=== PATIENT | female | born 1965 | race Caucasian/White ===

== ENCOUNTER → 2016-08-06 | Outpatient (CLI) | payer OTHER ==
[~2016-08-06] MED LIST: ATIVAN1 MG PO; AUGMENTIN 875 M1 TAB PO; BACTRIM DS 8001 TA1 PO; BENTYL20 MG PO; COLACE100 MG PO; DARVOCET N 1001 TAB PO; DAYPRO600 M1 PO; DEXALONE30 MG PO; DIFLUCAN150 MG PO; FERROUS SULFAT325 M1 PO; IRON; MOTRIN800 MG PO; MULTI VITAMINS1 TAB PO; PEPCID20 MG PO; ROBAXIN750 MG PO; TESSALON PERLE200 MG PO; TRAMADOL HCL50 MG PO; ULTRAM50 MG PO; VICODIN 500 MG-1 TAB PO; VOLTAREN50 M1 PO; ZITHROMAX Z PA250 MG PO; ZITHROMAX250 MG PO
[2016-08-06 13:27] LABS: BASO % 0.5 % (0.0-1.0); EOS % 0.5 % (1.0-4.0); HEMATOCRIT 38.6 % (37.0-47.0); HEMOGLOBIN 12.6 g/dl (12.0-16.0); MEAN CELL VOLUME 84.3 fl (81.0-99.0); MEAN CORPUSCULAR HGB 27.5 pg (27.0-31.0); MEAN CORPUSCULAR HGB CONC 32.6 g/dl (33.0-37.0); MEAN PLATELET VOLUME 9.3 fl (9.6-12.3); MONO # 0.5 10*3/uL (0.1-1.0); MONO % 6.8 % (3.0-9.0); NEUT # 4.8 10*3/uL (2.3-7.9); NEUT % 64.8 % (47.0-73.0); PLATELET COUNT AUTOMATED 289 10*3/uL (130-400); RED BLOOD COUNT 4.58 10*6/uL (4.10-5.10); WHITE BLOOD COUNT 7.4 10*3/uL (4.8-10.8)
[2016-08-06 13:46] LABS: ALBUMIN 3.9 gm/dl (3.1-4.5); ALKALINE PHOSPHATASE 91 U/L (45-117); BILIRUBIN, TOTAL 0.3 mg/dl (0.2-1.0); BUN 13 mg/dl (7-24); CARBON DIOXIDE 29 mmol/L (21-32); CHLORIDE 103 mmol/L (98-107); CHOLESTEROL 198 mg/dL (<200); EST GLOM FILT AFRICAN AMERICAN > 60 ml/min; GLUCOSE 83 mg/dL (65-99); HDL CHOLESTEROL 69 mg/dl (40-60); LDL CHOLESTEROL 115 mg/dL (9-159); POTASSIUM 3.7 mmol/L (3.5-5.1); SGOT/AST 13 IU/L (3-35); SGPT/ALT 23 U/L (12-78); SODIUM 142 mmol/L (136-145); TOTAL PROTEIN 7.6 gm/dL (6.4-8.2); TRIGLYCERIDES 68 mg/dl (<150); VLDL CHOLESTEROL 14 mg/dL (6-40)
[2016-08-06 13:53] LABS: THYROID STIM HORMONE (HS) 0.664 uIU/ml (0.358-4.75)
== END | disposition home or self-care (01) ==
LOC: LAB 13:05
PROVIDERS: Family Medicine
DX: E78.5 Hyperlipidemia, unspecified (principal); R53.83 Other fatigue; R63.5 Abnormal weight gain

== ENCOUNTER → 2019-06-13 | Outpatient (CLI) | payer BC, MEDICAID ==
[2019-06-13 16:44] LABS: BUN 9 mg/dl (7-24); CREATININE 0.79 mg/dL (0.55-1.02)
== END | disposition home or self-care (01) ==
LOC: LAB 15:49
PROVIDERS: Psychiatry & Neurology Neurology
DX: R41.3 Other amnesia (principal)

== ENCOUNTER → 2019-06-18 | Outpatient (CLI) | payer BC, MEDICAID | END | disposition home or self-care (01) | LOC: MRI 00:34 | DX: R41.9 Unspecified symptoms and signs involving cognitive functions and awareness (principal); R26.9 Unspecified abnormalities of gait and mobility; R25.8 Other abnormal involuntary movements ==

== ENCOUNTER → 2019-06-20 | Outpatient (CLI) | payer BC, MEDICAID | END | disposition home or self-care (01) | LOC: LAB 16:47 | DX: R53.83 Other fatigue (principal) ==

== ENCOUNTER → 2020-09-25 | Outpatient (CLI) | payer OTHER ==
[2020-09-25 13:45] LABS: BASO % 0.3 % (0.0-1.0); EOS % 0.5 % (1.0-4.0); HEMATOCRIT 38.2 % (37.0-47.0); LYMPH # 1.6 10*3/uL (1.3-4.4); LYMPH % 27.5 % (27.0-41.0); MEAN CELL VOLUME 88.4 fl (81.0-99.0); MEAN CORPUSCULAR HGB 29.9 pg (27.0-31.0); MEAN CORPUSCULAR HGB CONC 33.8 g/dl (33.0-37.0); MEAN PLATELET VOLUME 9.8 fl (9.6-12.3); MONO # 0.4 10*3/uL (0.1-1.0); MONO % 7.3 % (3.0-9.0); NEUT # 3.7 10*3/uL (2.3-7.9); NEUT % 64.1 % (47.0-73.0); PLATELET COUNT AUTOMATED 205 10*3/uL (130-400); RED BLOOD COUNT 4.32 10*6/uL (4.10-5.10); RED CELL DISTRI WIDTH 11.7 % (0-14.5); WHITE BLOOD COUNT 5.7 10*3/uL (4.8-10.8)
[2020-09-25 14:31] LABS: ALBUMIN 3.8 gm/dl (3.1-4.5); BUN 11 mg/dl (7-24); CHLORIDE 107 mmol/L (98-107); CREATININE 0.63 mg/dL (0.55-1.02); POTASSIUM 3.7 mmol/L (3.5-5.1); SGOT/AST 14 IU/L (3-35); SGPT/ALT 22 U/L (12-78); SODIUM 140 mmol/L (136-145)
[2020-09-25 14:39] LABS: ALKALINE PHOSPHATASE 98 U/L (45-117); THYROID STIM HORMONE (HS) 0.755 uIU/ml (0.358-4.75)
[2020-09-25 15:19] LABS: VITAMIN D, 25-HYDROXY 39.7 ng/mL (30-100)
== END | disposition home or self-care (01) ==
LOC: LAB 13:04
PROVIDERS: ATTEND Physician Assistant
DX: Z51.81 Encounter for therapeutic drug level monitoring (principal); E55.9 Vitamin D deficiency, unspecified

== ENCOUNTER → 2020-12-09 | Outpatient (CLI) | payer OTHER ==
[2020-12-09 10:18] LABS: BASO % 0.6 % (0.0-1.0); EOS # 0.1 10*3/uL (0.0-0.4); EOS % 2.1 % (1.0-4.0); HEMATOCRIT 38.9 % (37.0-47.0); LYMPH # 1.5 10*3/uL (1.3-4.4); LYMPH % 31.2 % (27.0-41.0); MEAN CELL VOLUME 89.6 fl (81.0-99.0); MEAN CORPUSCULAR HGB CONC 33.4 g/dl (33.0-37.0); MEAN PLATELET VOLUME 9.7 fl (9.6-12.3); MONO # 0.4 10*3/uL (0.1-1.0); MONO % 8.6 % (3.0-9.0); NEUT # 2.7 10*3/uL (2.3-7.9); NEUT % 57.3 % (47.0-73.0); PLATELET COUNT AUTOMATED 199 10*3/uL (130-400); RED BLOOD COUNT 4.34 10*6/uL (4.10-5.10); RED CELL DISTRI WIDTH 11.5 % (0-14.5); WHITE BLOOD COUNT 4.8 10*3/uL (4.8-10.8)
[2020-12-09 10:44] LABS: IRON 82 ug/dL (50-170); TOTAL IRON BINDING CAPACITY 407 ug/dl (250-450)
[2020-12-10 04:06] LABS: THYROID PEROXIDASE (TPO) AB <8 IU/mL (0-34)
[2020-12-10 05:06] LABS: RHEUMATOID ARTHRITIS FACTOR <10.0 IU/mL (0.0-13.9)
[2020-12-10 14:08] LABS: THYROGLOBULIN ANTIBODY <1.0 IU/mL (0.0-0.9)
== END | disposition home or self-care (01) ==
LOC: LAB 09:59
PROVIDERS: ATTEND Psychiatry & Neurology Psychiatry
DX: F34.1 Dysthymic disorder (principal); F43.10 Post-traumatic stress disorder, unspecified; F30.2 Manic episode, severe with psychotic symptoms

== ENCOUNTER → 2021-06-23 | Outpatient (CLI) | payer BC, OTHER | END | disposition home or self-care (01) | LOC: MAMMO 06-18 07:30 | PROVIDERS: ATTEND Preventive Medicine Occupational Medicine | DX: Z12.31 Encounter for screening mammogram for malignant neoplasm of breast (principal) ==

== ENCOUNTER → 2022-11-22 | Outpatient (CLI) | payer OTHER | END | disposition home or self-care (01) | LOC: US 09:00 | PROVIDERS: ATTEND Specialist | DX: M47.816 Spondylosis without myelopathy or radiculopathy, lumbar region (principal); K58.9 Irritable bowel syndrome, unspecified; K76.0 Fatty (change of) liver, not elsewhere classified; M47.814 Spondylosis without myelopathy or radiculopathy, thoracic region ==

== ENCOUNTER → 2022-12-31 | Outpatient (CLI) | payer OTHER | LOC: RAD 08:24 | PROVIDERS: ATTEND Nurse Practitioner | DX: M17.11 Unilateral primary osteoarthritis, right knee (principal); M77.31 Calcaneal spur, right foot; M25.562 Pain in left knee ==

== ENCOUNTER → 2023-02-03 | Outpatient (CLI) | payer OTHER | END | disposition home or self-care (01) | LOC: MAMMO 08:30 | PROVIDERS: ATTEND Nurse Practitioner | DX: Z12.31 Encounter for screening mammogram for malignant neoplasm of breast (principal) ==

== ENCOUNTER 2023-05-04 13:45 | Emergency (ER) | payer OTHER, MEDICAID ==
[~2023-05-04] VITALS: Ht 157.4 cm; Wt 106.6 kg
[2023-05-04 15:41] LABS: BASO % 0.4 % (0.0-1.0); EOS % 0.4 % (1.0-4.0); HEMATOCRIT 42.5 % (37.0-47.0); LYMPH # 1.3 10*3/uL (1.3-4.4); LYMPH % 14.3 % (27.0-41.0); MEAN CELL VOLUME 93.4 fl (81.0-99.0); MEAN CORPUSCULAR HGB 29.7 pg (27.0-31.0); MEAN CORPUSCULAR HGB CONC 31.8 g/dl (33.0-37.0); MEAN PLATELET VOLUME 9.4 fl (9.6-12.3); MONO # 0.5 10*3/uL (0.1-1.0); MONO % 5.9 % (3.0-9.0); NEUT # 7.2 10*3/uL (2.3-7.9); NEUT % 78.5 % (47.0-73.0); PLATELET COUNT AUTOMATED 290 10*3/uL (130-400); RED BLOOD COUNT 4.55 10*6/uL (4.10-5.10); RED CELL DISTRI WIDTH 12.4 % (0-14.5); WHITE BLOOD COUNT 9.2 10*3/uL (4.8-10.8)
[2023-05-04 15:51] LABS: ACT PARTIAL THROMBO TIME 23.6 SECONDS (20.0-32.1)
[2023-05-04 16:03] LABS: ALKALINE PHOSPHATASE 103 U/L (46-116); BUN 11 mg/dl (9-23); CHLORIDE 103 mmol/L (98-107); LIPASE 202 U/L (12-53); POTASSIUM 4.4 mmol/L (3.4-5.1); SGPT/ALT 37 U/L (5-49); TOTAL PROTEIN 7.6 gm/dL (6.0-8.0)
[2023-05-04 17:37] LABS: BILIRUBIN Negative (Negative); BLOOD Trace-Lysed (Negative); CLARITY Clear (Clear); COLOR Yellow (Yellow); GLUCOSE Negative (Negative); KETONE Trace (Negative); LEUKO ESTERASE Negative (Negative); NITRITE Positive (Negative); PH 5.5 (4.5-8.0); UROBILINOGEN 0.2 E.U./dl (0.0-1.0)
[2023-05-04 17:59] LABS: BACTERIA 4+
[2023-05-04] MEDS ORDERED: REGLAN10 M1 PO ×3 (20:14→20:30)
[2023-05-04] MEDS ORDERED: CIPRO500 MG PO ×3 (20:14→20:30)
[2023-05-04] MEDS ORDERED: ANTIVERT25 M2 PO ×3 (20:14→20:30)
== END 2023-05-04 20:23 | disposition home or self-care (01) ==
LOC: ED 13:45
PROVIDERS: Emergency Medicine
DX: N39.0 Urinary tract infection, site not specified (principal); R42 Dizziness and giddiness; R51.9 Headache, unspecified; R61 Generalized hyperhidrosis; R11.2 Nausea with vomiting, unspecified; R10.2 Pelvic and perineal pain; K21.9 Gastro-esophageal reflux disease without esophagitis; E78.00 Pure hypercholesterolemia, unspecified; M79.7 Fibromyalgia; Z88.8 Allergy status to other drugs, medicaments and biological substances; Z98.51 Tubal ligation status; Z98.890 Other specified postprocedural states

== ENCOUNTER 2023-07-03 20:12 | Emergency (ER) | payer OTHER, MEDICAID ==
[~2023-07-03] VITALS: Ht 154.9 cm; Wt 106.6 kg
[~2023-07-03 20:12] MED LIST changes: +ANTIVERT25 M2 PO; +CIPRO500 MG PO; +REGLAN10 M1 PO
[2023-07-03] MEDS ORDERED: Ketorolac Tromethamine 60 MG/2 ML VIAL IM ONE (21:40)
== END 2023-07-03 22:09 | disposition home or self-care (01) ==
LOC: ED 20:12
DX: S96.911A Strain of unspecified muscle and tendon at ankle and foot level, right foot, initial encounter (principal); K21.9 Gastro-esophageal reflux disease without esophagitis; E78.00 Pure hypercholesterolemia, unspecified; M79.7 Fibromyalgia; Z88.8 Allergy status to other drugs, medicaments and biological substances; Z98.51 Tubal ligation status; Z98.890 Other specified postprocedural states; X50.1XXA Overexertion from prolonged static or awkward postures, initial encounter; Y93.01 Activity, walking, marching and hiking; Y92.89 Other specified places as the place of occurrence of the external cause; Y99.8 Other external cause status

== ENCOUNTER → 2023-07-06 | Outpatient (CLI) | payer OTHER, MEDICAID | END | disposition home or self-care (01) | LOC: MRI 08:32 | PROVIDERS: ATTEND Student in an Organized Health Care Education/Training Program | DX: M47.816 Spondylosis without myelopathy or radiculopathy, lumbar region (principal); M48.07 Spinal stenosis, lumbosacral region; M51.27 Other intervertebral disc displacement, lumbosacral region ==

== ENCOUNTER → 2023-07-13 | Outpatient (CLI) | payer OTHER, MEDICAID | LOC: US 07-11 09:00 | DX: Z01.818 Encounter for other preprocedural examination (principal); K76.0 Fatty (change of) liver, not elsewhere classified ==

== ENCOUNTER → 2023-07-26 | Outpatient (CLI) | payer OTHER, MEDICAID | END | disposition home or self-care (01) | LOC: US 11:36 | PROVIDERS: ATTEND Nurse Practitioner | DX: M71.21 Synovial cyst of popliteal space [Baker], right knee (principal) ==

== ENCOUNTER → 2023-09-03 | Outpatient (CLI) | payer OTHER, MEDICAID ==
[~2023-09-03] MED LIST changes: +ALLERGY RELIEF10 M2 PO; +AMMONIUM LACTA227 GM T; +ATORVASTATIN CA20 M1 PO; +BUPROPION HYDR100 M3 PO; +CLONAZEPAM0.5 M2 PO; +DULOXETINE HCL60 MG PO; +LIDODERM1 EACH T; +MELOXICAM15 MG PO; +MEMANTINE HCL10 MG PO; +METFORMIN HYDR500 MG PO; +METOPROLOL SUCC50 M1 PO; +OXYBUTYNIN10 MG PO; +PREGABALIN150 MG PO; +RIVASTIGMINE TAR6 M1 PO
== END | disposition home or self-care (01) ==
LOC: RAD 09:11
PROVIDERS: ATTEND Nurse Practitioner
DX: M79.671 Pain in right foot (principal)

== ENCOUNTER 2023-09-06 11:37 | Emergency (ER) | payer OTHER, MEDICAID ==
[~2023-09-06] VITALS: Ht 157.4 cm; Wt 106.6 kg
[~2023-09-06 11:37] MED LIST changes: -ALLERGY RELIEF10 M2 PO; -AMMONIUM LACTA227 GM T; -ATORVASTATIN CA20 M1 PO; -BUPROPION HYDR100 M3 PO; -CLONAZEPAM0.5 M2 PO; -DULOXETINE HCL60 MG PO; -LIDODERM1 EACH T; -MELOXICAM15 MG PO; -MEMANTINE HCL10 MG PO; -METFORMIN HYDR500 MG PO; -METOPROLOL SUCC50 M1 PO; -OXYBUTYNIN10 MG PO; -PREGABALIN150 MG PO; -RIVASTIGMINE TAR6 M1 PO
[2023-09-06 12:16] LABS: BASO # 0.1 10*3/uL (0.0-0.1); BASO % 0.7 % (0.0-1.0); EOS # 0.2 10*3/uL (0.0-0.4); EOS % 2.1 % (1.0-4.0); HEMATOCRIT 38.7 % (37.0-47.0); LYMPH # 1.9 10*3/uL (1.3-4.4); LYMPH % 27.1 % (27.0-41.0); MEAN CELL VOLUME 90.8 fl (81.0-99.0); MEAN CORPUSCULAR HGB 29.1 pg (27.0-31.0); MEAN PLATELET VOLUME 9.4 fl (9.6-12.3); MONO # 0.7 10*3/uL (0.1-1.0); MONO % 10.1 % (3.0-9.0); NEUT # 4.2 10*3/uL (2.3-7.9); NEUT % 59.9 % (47.0-73.0); PLATELET COUNT AUTOMATED 261 10*3/uL (130-400); RED BLOOD COUNT 4.26 10*6/uL (4.10-5.10); RED CELL DISTRI WIDTH 12.9 % (0-14.5)
[2023-09-06 12:33] LABS: ACT PARTIAL THROMBO TIME 26.8 SECONDS (20.0-32.1)
[2023-09-06] MEDS ORDERED: BUPROPION HYDR100 M3 PO (12:38)
[2023-09-06] MEDS ORDERED: METFORMIN HYDR500 MG PO (12:38)
[2023-09-06] MEDS ORDERED: DULOXETINE HCL60 MG PO (12:39)
[2023-09-06] MEDS ORDERED: CLONAZEPAM0.5 M2 PO (12:39)
[2023-09-06] MEDS ORDERED: MEMANTINE HCL10 MG PO (12:39)
[2023-09-06] MEDS ORDERED: RIVASTIGMINE TAR6 M1 PO (12:39)
[2023-09-06] MEDS ORDERED: METOPROLOL SUCC50 M1 PO (12:40)
[2023-09-06] MEDS ORDERED: OXYBUTYNIN10 MG PO (12:40)
[2023-09-06] MEDS ORDERED: ALLERGY RELIEF10 M2 PO (12:40)
[2023-09-06] MEDS ORDERED: AMMONIUM LACTA227 GM T (12:41)
[2023-09-06] MEDS ORDERED: ATORVASTATIN CA20 M1 PO (12:41)
[2023-09-06 12:43] LABS: ALKALINE PHOSPHATASE 79 U/L (46-116); BUN 7 mg/dl (9-23); CHLORIDE 99 mmol/L (98-107); POTASSIUM 3.9 mmol/L (3.4-5.1); SGPT/ALT 42 U/L (5-49); TOTAL PROTEIN 7.1 gm/dL (6.0-8.0)
[2023-09-06] MEDS ORDERED: PREGABALIN150 MG PO (12:44)
[2023-09-06] MEDS ORDERED: LIDODERM1 EACH T (13:06)
[2023-09-06] MEDS ORDERED: MELOXICAM15 MG PO (14:08)
== END 2023-09-06 14:18 | disposition home or self-care (01) ==
LOC: ED 11:37
PROVIDERS: Internal Medicine
DX: R07.89 Other chest pain (principal); K21.9 Gastro-esophageal reflux disease without esophagitis; E78.00 Pure hypercholesterolemia, unspecified; M79.7 Fibromyalgia; Z88.8 Allergy status to other drugs, medicaments and biological substances; Z98.51 Tubal ligation status; Z98.890 Other specified postprocedural states

== ENCOUNTER → 2023-10-03 | Outpatient (CLI) | payer OTHER ==
[~2023-10-03] MED LIST changes: +ALLERGY RELIEF10 M2 PO; +AMMONIUM LACTA227 GM T; +ATORVASTATIN CA20 M1 PO; +BUPROPION HYDR100 M3 PO; +CLONAZEPAM0.5 M2 PO; +DULOXETINE HCL60 MG PO; +LIDODERM1 EACH T; +MELOXICAM15 MG PO; +MEMANTINE HCL10 MG PO; +METFORMIN HYDR500 MG PO; +METOPROLOL SUCC50 M1 PO; +OXYBUTYNIN10 MG PO; +PREGABALIN150 MG PO; +RIVASTIGMINE TAR6 M1 PO
== END | disposition home or self-care (01) ==
LOC: RAD 08:00
PROVIDERS: ATTEND Nurse Practitioner
DX: Z13.820 Encounter for screening for osteoporosis (principal); M85.852 Other specified disorders of bone density and structure, left thigh; M85.88 Other specified disorders of bone density and structure, other site; I10 Essential (primary) hypertension; E55.9 Vitamin D deficiency, unspecified

== ENCOUNTER → 2023-10-17 | Outpatient (CLI) | payer OTHER | END | disposition home or self-care (01) | LOC: ORTHO 02:39 | PROVIDERS: ATTEND Orthopaedic Surgery | DX: M19.041 Primary osteoarthritis, right hand (principal); M75.81 Other shoulder lesions, right shoulder; M79.641 Pain in right hand ==

== ENCOUNTER → 2023-12-12 | Outpatient (CLI) | payer OTHER ==
[2023-12-12 15:05] LABS: BASO % 0.3 % (0.0-1.0); EOS # 0.2 10*3/uL (0.0-0.4); EOS % 1.9 % (1.0-4.0); HEMATOCRIT 37.9 % (37.0-47.0); LYMPH # 1.8 10*3/uL (1.3-4.4); LYMPH % 21.1 % (27.0-41.0); MEAN CELL VOLUME 88.6 fl (81.0-99.0); MEAN CORPUSCULAR HGB 29.2 pg (27.0-31.0); MEAN PLATELET VOLUME 9.4 fl (9.6-12.3); MONO # 0.9 10*3/uL (0.1-1.0); MONO % 10.6 % (3.0-9.0); NEUT # 5.7 10*3/uL (2.3-7.9); NEUT % 65.8 % (47.0-73.0); PLATELET COUNT AUTOMATED 301 10*3/uL (130-400); RED BLOOD COUNT 4.28 10*6/uL (4.10-5.10); RED CELL DISTRI WIDTH 12.5 % (0-14.5); WHITE BLOOD COUNT 8.6 10*3/uL (4.8-10.8)
[2023-12-12 15:39] LABS: ALKALINE PHOSPHATASE 102 U/L (46-116); BUN 11 mg/dl (9-23); CHLORIDE 100 mmol/L (98-107); POTASSIUM 3.7 mmol/L (3.4-5.1); SGPT/ALT 22 U/L (5-49); TOTAL PROTEIN 6.9 gm/dL (6.0-8.0)
== END | disposition home or self-care (01) ==
LOC: LAB 14:44
PROVIDERS: ATTEND Student in an Organized Health Care Education/Training Program
DX: K91.2 Postsurgical malabsorption, not elsewhere classified (principal)

== ENCOUNTER → 2024-01-05 | Outpatient (CLI) | payer OTHER | END | disposition home or self-care (01) | LOC: MAMMO 09:06 | PROVIDERS: ATTEND Nurse Practitioner | DX: Z12.31 Encounter for screening mammogram for malignant neoplasm of breast (principal) ==

== ENCOUNTER → 2024-01-21 | Outpatient (CLI) | payer OTHER ==
[2024-01-21 07:26] LABS: BASO # 0.1 10*3/uL (0.0-0.1); EOS # 0.2 10*3/uL (0.0-0.4); EOS % 3.4 % (1.0-4.0); HEMATOCRIT 41.2 % (37.0-47.0); LYMPH # 2.2 10*3/uL (1.3-4.4); LYMPH % 41.1 % (27.0-41.0); MEAN CELL VOLUME 89.4 fl (81.0-99.0); MEAN CORPUSCULAR HGB 29.3 pg (27.0-31.0); MEAN CORPUSCULAR HGB CONC 32.8 g/dl (33.0-37.0); MEAN PLATELET VOLUME 9.5 fl (9.6-12.3); MONO # 0.5 10*3/uL (0.1-1.0); MONO % 9.5 % (3.0-9.0); NEUT # 2.4 10*3/uL (2.3-7.9); NEUT % 44.8 % (47.0-73.0); PLATELET COUNT AUTOMATED 257 10*3/uL (130-400); RED BLOOD COUNT 4.61 10*6/uL (4.10-5.10); RED CELL DISTRI WIDTH 14.4 % (0-14.5); WHITE BLOOD COUNT 5.3 10*3/uL (4.8-10.8)
[2024-01-21 07:51] LABS: ALKALINE PHOSPHATASE 130 U/L (46-116); BUN 14 mg/dl (9-23); CHLORIDE 105 mmol/L (98-107); POTASSIUM 4.6 mmol/L (3.4-5.1); SGPT/ALT 25 U/L (5-49); TOTAL PROTEIN 6.8 gm/dL (6.0-8.0)
== END | disposition home or self-care (01) ==
LOC: LAB 07:09
PROVIDERS: ATTEND Student in an Organized Health Care Education/Training Program
DX: K91.2 Postsurgical malabsorption, not elsewhere classified (principal)

== ENCOUNTER → 2024-02-06 | Outpatient (CLI) | payer OTHER | END | disposition home or self-care (01) | LOC: US 11:04 | PROVIDERS: ATTEND Nurse Practitioner | DX: R31.29 Other microscopic hematuria (principal) ==

== ENCOUNTER 2024-03-21 16:14 | Emergency (ER) | payer OTHER ==
[~2024-03-21] VITALS: Ht 157.4 cm; Wt 83.9 kg
== END 2024-03-21 18:38 | disposition home or self-care (01) ==
LOC: ED 16:14
DX: S20.211A Contusion of right front wall of thorax, initial encounter (principal); Z88.8 Allergy status to other drugs, medicaments and biological substances; Z88.6 Allergy status to analgesic agent; Z79.84 Long term (current) use of oral hypoglycemic drugs; Z79.899 Other long term (current) drug therapy; X50.0XXA Overexertion from strenuous movement or load, initial encounter; Y93.89 Activity, other specified; Y92.512 Supermarket, store or market as the place of occurrence of the external cause; Y99.8 Other external cause status

== ENCOUNTER 2024-04-23 18:12 | Emergency (ER) | payer OTHER ==
[~2024-04-23] VITALS: Ht 157.4 cm; Wt 83.9 kg
[2024-04-23] MEDS ORDERED: Acetaminophen/Oxycodone 5 MG/325 MG TABLET PO ONE ×2 (18:50→21:25)
[2024-04-23] MEDS ORDERED: PERCOCET 5-3251 EACH PO (21:24)
== END 2024-04-23 21:20 | disposition home or self-care (01) ==
LOC: ED 18:12
DX: S22.32XA Fracture of one rib, left side, initial encounter for closed fracture (principal); S10.91XA Abrasion of unspecified part of neck, initial encounter; K21.9 Gastro-esophageal reflux disease without esophagitis; E78.00 Pure hypercholesterolemia, unspecified; M79.7 Fibromyalgia; Z88.8 Allergy status to other drugs, medicaments and biological substances; Z98.890 Other specified postprocedural states; Y08.89XA Assault by other specified means, initial encounter; Y93.89 Activity, other specified; Y92.009 Unspecified place in unspecified non-institutional (private) residence as the place of occurrence of the external cause; Y99.8 Other external cause status

== ENCOUNTER → 2024-07-24 | Outpatient (CLI) | payer OTHER ==
[~2024-07-24] MED LIST changes: +PERCOCET 5-3251 EACH PO
[2024-07-24 09:10] LABS: BASO % 0.5 % (0.0-1.0); EOS # 0.2 10*3/uL (0.0-0.4); EOS % 2.8 % (1.0-4.0); HEMATOCRIT 38.5 % (37.0-47.0); MEAN CELL VOLUME 91.7 fl (81.0-99.0); MEAN CORPUSCULAR HGB 29.5 pg (27.0-31.0); MEAN CORPUSCULAR HGB CONC 32.2 g/dl (33.0-37.0); MEAN PLATELET VOLUME 9.8 fl (9.6-12.3); MONO # 0.6 10*3/uL (0.1-1.0); MONO % 7.4 % (3.0-9.0); NEUT # 5.1 10*3/uL (2.3-7.9); NEUT % 65.5 % (47.0-73.0); PLATELET COUNT AUTOMATED 247 10*3/uL (130-400); RED CELL DISTRI WIDTH 12.9 % (0-14.5); WHITE BLOOD COUNT 7.8 10*3/uL (4.8-10.8)
[2024-07-24 09:52] LABS: ALKALINE PHOSPHATASE 129 U/L (46-116); BUN 13 mg/dl (9-23); CHLORIDE 102 mmol/L (98-107); POTASSIUM 3.4 mmol/L (3.4-5.1); SGPT/ALT 21 U/L (5-49); TOTAL PROTEIN 6.6 gm/dL (6.0-8.0)
[2024-07-24 09:57] LABS: VITAMIN D, 25-HYDROXY 39.6 ng/mL (30-100)
== END | disposition home or self-care (01) ==
LOC: LAB 08:51
PROVIDERS: ATTEND Student in an Organized Health Care Education/Training Program
DX: K91.2 Postsurgical malabsorption, not elsewhere classified (principal)

== ENCOUNTER → 2024-08-01 | Outpatient (CLI) | payer OTHER | END | disposition home or self-care (01) | LOC: ORTHO 00:24 | PROVIDERS: ATTEND Orthopaedic Surgery | DX: M19.041 Primary osteoarthritis, right hand (principal); M79.641 Pain in right hand ==

== ENCOUNTER 2024-11-21 19:43 | Emergency (ER) | payer OTHER ==
[~2024-11-21] VITALS: Wt 76.7 kg
[2024-11-21] MEDS ORDERED: Lidocaine Hydrochloride 2% 10 ML AMP SC ONE (21:45)
[2024-11-21] MEDS ORDERED: Tdap Vaccine 0.5 ML SYR (Adult Vaccine) IM ONE (22:35)
[2024-11-21] MEDS ORDERED: ceFAZolin sodium/sodium chlor 20 ML IV ONE (22:50)
[2024-11-21] MEDS ORDERED: ceFAZolin sodium 2 GM in SYRINGE INFUSION 20 ML IV ONE (22:50)
[2024-11-22] MEDS ORDERED: HYDROCODONE-AC1 EAC1 PO (00:11)
[2024-11-22] MEDS ORDERED: Acetaminophen/Hydrocodone 5 MG/325 MG TABLET PO ONE (00:15)
== END 2024-11-22 00:04 | disposition home or self-care (01) ==
LOC: ED 19:43
DX: S61.210A Laceration without foreign body of right index finger without damage to nail, initial encounter (principal); K21.9 Gastro-esophageal reflux disease without esophagitis; Z79.899 Other long term (current) drug therapy; Z88.8 Allergy status to other drugs, medicaments and biological substances; Z98.51 Tubal ligation status; Z98.890 Other specified postprocedural states; W26.8XXA Contact with other sharp object(s), not elsewhere classified, initial encounter; Y93.89 Activity, other specified; Y92.89 Other specified places as the place of occurrence of the external cause; Y99.8 Other external cause status

== ENCOUNTER → 2025-03-14 | Outpatient (CLI) | payer OTHER ==
[~2025-03-14] MED LIST changes: +HYDROCODONE-AC1 EAC1 PO
== END | disposition home or self-care (01) ==
LOC: MAMMO 01-28 11:30
PROVIDERS: ATTEND Nurse Practitioner
DX: Z12.31 Encounter for screening mammogram for malignant neoplasm of breast (principal); E04.1 Nontoxic single thyroid nodule

== ENCOUNTER → 2025-05-02 | Outpatient (CLI) | payer OTHER, MEDICAID | END | disposition home or self-care (01) | LOC: RAD 10:09 | PROVIDERS: ATTEND Physician Assistant | DX: M77.31 Calcaneal spur, right foot (principal); M79.674 Pain in right toe(s) ==

== ENCOUNTER 2025-05-13 11:00 | Emergency (ER) | payer OTHER, MEDICAID ==
[~2025-05-13] VITALS: Ht 157.4 cm; Wt 77.1 kg
[2025-05-13] MEDS ORDERED: Lidocaine Hydrochloride 2% 10 ML AMP SC ONE (11:40)
[2025-05-13] MEDS ORDERED: CEPHALEXIN500 M1 PO (12:12)
== END 2025-05-13 12:16 | disposition home or self-care (01) ==
LOC: ED 11:00
DX: S61.211A Laceration without foreign body of left index finger without damage to nail, initial encounter (principal); K21.9 Gastro-esophageal reflux disease without esophagitis; E78.00 Pure hypercholesterolemia, unspecified; M79.7 Fibromyalgia; Z88.8 Allergy status to other drugs, medicaments and biological substances; W25.XXXA Contact with sharp glass, initial encounter; Y93.89 Activity, other specified; Y92.89 Other specified places as the place of occurrence of the external cause; Y99.8 Other external cause status